=== PATIENT | male | born 1950 | race American Indian/Alaskan Native ===

== ENCOUNTER 2017-10-08 11:09 | Emergency (ER) | payer MEDICARE ==
[2017-10-08 11:54] LABS: Basophils % (Auto) 2.7 % (0.0-1.8); Eosinophils % (Auto) 0.5 % (0.0-4.3); Hematocrit 48.1 % (35.5-45.6); Hemoglobin 16.1 gm/dl (11.8-15.2); Mean Corpuscular HGB Conc 34 % (32-34); Mean Corpuscular Hemoglobin 26 pg (28-32); Mean Corpuscular Volume 78 fl (84-94); Platelet Count 259 K/mm3 (140-440); Red Blood Count 6.19 M/mm3 (3.65-5.03); Red Cell Distribution Width 15.5 % (13.2-15.2)
[2017-10-08 12:09] LABS: Anion Gap 17 mmol/L; BUN/Creatinine Ratio 16; Blood Urea Nitrogen 19 mg/dL (9-20); Calcium 8.9 mg/dL (8.4-10.2); Carbon Dioxide 26 mmol/L (22-30); Glucose 131 mg/dL (75-100); Potassium 3.9 mmol/L (3.6-5.0); Sodium 146 mmol/L (137-145)
[2017-10-08] MEDS ORDERED: APRESOLINE IV ONE (16:36)
--- NOTE | 2017-10-08 16:54 | Emergency Department Report ---
HPI - General Chief Complaint: Psych Time Seen by Provider: 10/08/17 15:57 - HPI HPI: This is a 67-year-old male presents to the emergency department , brought in by his sister, for a mental health evaluation. The sister is not currently at bedside. Previous records show that the patient has a history of a CVA, hypertension and a history of schizophrenia. The patient denies any auditory or visual hallucinations or any homicidal or suicidal ideations. However the patient has been seen talking to himself and both triage and back in room 9 and the main emergency department. Patient does present with very elevated blood pressure. Once again he denies having history of hypertension but there is previous records that show he is on multiple antihypertensives. The patient is a poor historian. ED Past Medical Hx - Past Medical History Hx Hypertension: Yes Hx CVA: Yes Hx Psychiatric Treatment: Yes (schizophrenia) - Surgical History Additional Surgical History: Patient has surgical scars to his abdomen but is unable to tell me what the surgery was for other then they thought he was bleeding. - Social History Smoking Status: Current Every Day Smoker Substance Use Type: None - Medications Home Medications: Home Medications Medication Instructions Recorded Confirmed Last Taken Type Aspirin EC [Aspirin Enteric Coated 81 mg PO QDAY #30 tablet.dr 08/17/16 Unknown Rx TAB] Hydrochlorothiazide [HCTZ] 25 mg PO QDAY #30 tablet 08/17/16 Unknown Rx Lisinopril [Zestril TAB] 20 mg PO QDAY #30 tablet 08/17/16 Unknown Rx Simvastatin [Zocor TAB] 20 mg PO QHS #30 tablet 08/17/16 Unknown Rx OLANzapine [ZyPREXA] 2.5 mg PO Q8H PRN 7 Days tablet 08/20/16 Unknown Rx Losartan [Cozaar] 50 mg PO QDAY #30 tablet 10/08/17 Unknown Rx Nitrofurantoin Monohyd/M-Cryst 100 mg PO BID #14 capsule 10/08/17 Unknown Rx [Macrobid 100 mg Capsule] amLODIPine [Norvasc] 10 mg PO DAILY #30 tab 10/08/17 Unknown Rx ED Review of Systems ROS: Stated complaint: MENTAL HEALTH EVALUATION Other details as noted in HPI Comment: All other systems reviewed and negative Constitutional: denies: chills, fever Eyes: denies: eye pain, eye discharge, vision change ENT: denies: ear pain, throat pain Respiratory: denies: cough, shortness of breath, wheezing Cardiovascular: denies: chest pain, palpitations Gastrointestinal: denies: abdominal pain, nausea, diarrhea Genitourinary: denies: urgency, dysuria Musculoskeletal: denies: back pain, joint swelling, arthralgia Skin: denies: rash, lesions Neurological: denies: headache, weakness, paresthesias Physical Exam - Physical Exam Vital Signs: Vital Signs 10/08/17 11:30 Temperature 98 F Pulse Rate 84 Respiratory 18 Rate Blood Pressure 212/127 O2 Sat by Pulse 98 Oximetry Physical Exam: GENERAL: The patient is well-developed well-nourished. HENT: Normocephalic. Atraumatic. Patient has moist mucous membranes. EYES: Extraocular motions are intact. Pupils equal reactive to light bilaterally. NECK: Supple. Trachea is midline. CHEST/LUNGS: Clear to auscultation. There is no respiratory distress noted. HEART/CARDIOVASCULAR: Regular. There is no tachycardia. There is no murmur. ABDOMEN: Abdomen is soft, nontender. Patient has normal bowel sounds. There is no abdominal distention. SKIN: Skin is warm and dry. NEURO: The patient is awake, alert, and oriented. The patient is cooperative. The patient has no focal neurologic deficits. The patient has normal speech and gait. MUSCULOSKELETAL: There is no tenderness or deformity. There is no limitation range of motion. There is no evidence of acute injury. PSYCH: The patient is seen talking to himself but when I enter the room he immediately comes attentive. Otherwise he has been calm and appropriate. ED Course Vital Signs 10/08/17 11:30 Temperature 98 F Pulse Rate 84 Respiratory 18 Rate Blood Pressure 212/127 O2 Sat by Pulse 98 Oximetry ED Medical Decision Making - Lab Data Result diagrams: 10/08/17 11:35 10/08/17 11:35 - Medical Decision Making Patient was brought in by his sister for a mental evaluation. There is some previous record saying that the patient has a history of schizophrenia. The patient does appear to have some episodes where he is talking to himself but once myself or one of the nurses or the psych incinerator plant laborer enters the room he is able to give his full attention and does not appear to be responding to internal stimuli at that point. He denies any hallucinations or any homicidal or suicidal ideations. The sister eventually came bedside and expresses concerns that he has not taking medications, does not want to see a physician and may need more care than she feels she is able to provide. She also says that he has some previous psychiatric care through [facility]. He was seen by the psych incinerator plant laborer, Kim, who agrees that he does not appear to meet criteria to be made a 1013. He is not a danger to himself. He does not appear to be aggressive or a danger to others at this point. And he is able to answer questions appropriately at this time and therefore appears to be able to take care of any activities of daily living and does not display any acute psychosis. I explained to the family that since he does not meet criteria to be admitted 1013 that he does not need to be sent to an inpatient psychiatric facility. He may need evaluation in the future by a neurologist for dementia. He certainly needs to see his psychiatrist. But none of this appears to require inpatient psychiatric or medicine admissions. Labs do show a urinary tract infection. He was given a dose of Rocephin here and will go home on Macrobid. The patient does present with elevated blood pressure but it has come down to a much more reasonable level after a dose of hydralazine and labetalol. He will be restarted on his blood pressure medications. Since his blood pressure came down to a reasonable level and he has no complaints of any chest pain, shortness of breath, headache or any other acute process, he appears safe for discharge home at this time. He has been encouraged to return to the emergency department, or for his family to bring him back, if there is any change in his mental status, signs of psychosis, or any concerns that need evaluation or any acute distress. Critical Care Time: No Critical care attestation.: If time is entered above; I have spent that time in minutes in the direct care of this critically ill patient, excluding procedure time. ED Disposition Clinical Impression: Asymptomatic hypertensive urgency, Noncompliance with medication regimen UTI (urinary tract infection) Qualifiers: Urinary tract infection type: acute cystitis Hematuria presence: without hematuria Qualified Code(s): N30.00 - Acute cystitis without hematuria Disposition: TO HOME OR SELFCARE Is pt being admited?: No Condition: Stable Prescriptions: amLODIPine [Norvasc] 10 mg PO DAILY #30 tab Losartan [Cozaar] 50 mg PO QDAY #30 tablet Nitrofurantoin Monohyd/M-Cryst [Macrobid 100 mg Capsule] 100 mg PO BID #14 capsule Referrals: PRIMARY CAREMD [Primary Care Provider] - 3-5 Days MASON KRISHNAN MD [Staff Physician] - 3-5 Days [facility] [Outside] - 3-5 Days Time of Disposition: 20:36
[2017-10-08] MEDS ORDERED: NORMODYNE IV ONE (18:15)
[2017-10-08 18:40] LABS: Urine Drugs of Abuse Note Disclamer
[2017-10-08 18:56] LABS: Bacteria,Urine 4+ /HPF (Negative); Bilirubin,Urine NEG (Negative); Blood,Urine SM (Negative); Ketones,Urine TR mg/dL (Negative); Leukocyte Esterase,Urine LG (Negative); Mucus,Urine FEW /HPF; Nitrite,Urine POS (Negative); Protein,Urine <15 mg/dL mg/dL (Negative)
[2017-10-08] MEDS ORDERED: ROCEPHIN/NS 1 GM/50 ML 1 GM/50 ML BAG IV ONE (19:16)
[2017-10-08] MEDS ORDERED: cefTRIAXone 1 GM in NACL 0.9% 20 ML IV ONE (19:30)
[2017-10-08 20:29] VITALS: BP 142/76
== END 2017-10-08 22:21 | disposition home or self-care (01) ==
LOC: ED 11:09
DX: I16.0 Hypertensive urgency (principal); N30.00 Acute cystitis without hematuria; F20.9 Schizophrenia, unspecified; Z91.14 Patient's other noncompliance with medication regimen; F17.200 Nicotine dependence, unspecified, uncomplicated; Z86.73 Personal history of transient ischemic attack (TIA), and cerebral infarction without residual deficits
CPT/HCPCS: 36415; 80048; 80307; 81001; 85025; 96365; 96375; 99283; G0480; J0360; J0696; 80320